=== PATIENT | male | born 1930 | race Caucasian/White ===

== ENCOUNTER → 2018-05-05 | Outpatient (CLI) | payer MEDICARE, BC ==
--- NOTE | 2018-05-05 08:21 | MM ---
Reason for exam: additional evaluation requested from prior study. Last mammogram was performed 5 years and 4 months ago. History: Patient has history of breast cancer at age 82. Mastectomy of the right breast, January 05, 2013. Malignant US RT VAD breast biopsy of the right breast, December 29, 2012. Taking antineoplastic beginning at age 82. Physical Findings: Nurse did not find any significant physical abnormalities on exam. MG 3D Diag Mammo W/Cad LT CC, MLO, and XCCL view(s) were taken of the left breast. Prior study comparison: December 21, 2012, CAD bilateral diagnostic mammogram. There are scattered fibroglandular densities. No significant new findings when compared with previous films. These results were verbally communicated with the patient and result sheet given to the patient on 05/05/18. ASSESSMENT: Negative, BI-RAD 1 RECOMMENDATION: Follow-up diagnostic mammogram of the left breast in 1 year. (as clinically indicated) Manage on a clinical basis with regard to patient's concerns about the right axilla. He does not report any palpable concerns. The nurse also did not feel any abnormality in the right axilla.
== END | disposition home or self-care (01) ==
LOC: RADMAMWWP 07:12
PROVIDERS: ATTEND Internal Medicine Hematology & Oncology
DX: Z08 Encounter for follow-up examination after completed treatment for malignant neoplasm (principal); Z85.3 Personal history of malignant neoplasm of breast
CPT/HCPCS: 77065; G0279; 77061

== ENCOUNTER 2018-11-16 20:47 | Emergency (ER) | payer MEDICARE, BC ==
[2018-11-16 20:54] VITALS: RESP 18
[2018-11-16 21:42] LABS: Basophils % (A) 0 %; Eosinophils # (A) 0.2 k/uL (0-0.7); Eosinophils % (A) 1 %; HCT 44.9 % (39.0-53.0); HGB 14.4 gm/dL (13.0-17.5); Lymphocytes # (A) 0.9 k/uL (1.0-4.8); Lymphocytes % (A) 9 %; MCH 30.9 pg (25.0-35.0); MCHC 32.1 g/dL (31.0-37.0); MCV 96.3 fL (80.0-100.0); Mean Platelet Volume 7.4; Monocytes # (A) 0.4 k/uL (0-1.0); Monocytes % (A) 4 %; Neutrophils # (A) 9.2 k/uL (1.3-7.7); Neutrophils % (A) 86 %; Platelet Count 204 k/uL (150-450); RBC 4.66 m/uL (4.30-5.90); RDW 13.7 % (11.5-15.5); WBC 10.7 k/uL (3.8-10.6)
[2018-11-16] MEDS ORDERED: ACETAMINOPHEN TAB 325 MG TAB PO STA (21:52)
[2018-11-16 21:54] LABS: Albumin 3.8 g/dL (3.5-5.0); C Reactive Protein 5.1 mg/L (<10.0); Calcium 9.2 mg/dL (8.4-10.2); Potassium 4.2 mmol/L (3.5-5.1); Total Bilirubin 0.6 mg/dL (0.2-1.3); Total Protein 6.2 g/dL (6.3-8.2)
--- NOTE | 2018-11-16 21:57 | XR ---
PROCEDURE: XR wrist complete LT - 3V DATE AND TIME: 11/16/2018 9:39 PM CLINICAL INDICATION: PHH; Pain TECHNIQUE: Department protocol COMPARISON: None FINDINGS: There is no fracture or malalignment. 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 Moderate marked lateral intercarpal and radiocarpal osteoarthritis changes are noted. The soft tissues are unremarkable. IMPRESSION: NO ACUTE PROCESS.
--- NOTE | 2018-11-16 21:58 | XR ---
PROCEDURE: XR hand complete LT - 3V DATE AND TIME: 11/16/2018 9:39 PM CLINICAL INDICATION: PHH; Pain TECHNIQUE: Department protocol COMPARISON: None FINDINGS: There is no fracture or malalignment. Markedly advanced first [facility] osteoarthritis are noted. Moderate marked lateral intercarpal and radiocarpal osteoarthritis changes are noted. The soft tissues are unremarkable. IMPRESSION: NO ACUTE PROCESS.
--- NOTE | 2018-11-16 22:36 | ED ---
General Adult HPI - General Source: patient, RN notes reviewed, old records reviewed Mode of arrival: ambulatory Limitations: no limitations <Guillermo Wang - Last Filed: 11/16/18 23:16> <Swathi Ayers - Last Filed: 11/17/18 21:57> - General Chief complaint: Extremity Injury, Upper Stated complaint: Hand pain Time Seen by Provider: 11/16/18 21:00 - History of Present Illness Initial comments: A 88-year-old male patient past medical history of hyperlipidemia, breast cancer in remission since ED with 1 day of pain, swelling and left wrists at anatomical snuffbox. Patient denies any other complaints. Patient denies fever/chills, nausea vomiting diarrhea, chest pain, shortness breath, abdominal pain. Systemic: Pt denies fatigue, fever/chills, rash. Pt denies weakness, night sweats, weight loss. Neuro: Pt denies headache, visual disturbances, syncope or pre-syncope. HEENT: Pt denies ocular discharge or irritation, otalgia, rhinorrhea, pharyngitis or notable lymphadenopathy. Cardiopulmonary: Pt denies chest pain, SOB, heart palpitations, dyspnea on exertion. Abdominal/GI: Pt denies abdominal pain, n/v/d. : Pt denies dysuria, burning w/ urination, frequency/urgency. Denies new onset urinary or bowel incontinence. MSK: Pt denies loss of strength or function in extremities. Neuro: Pt denies new onset weakness, paresthesias. (Guillermo Wang) - Related Data Home Medications Medication Instructions Recorded Confirmed Antiarthritic Combination No.2 900 mg PO DAILY 03/21/15 03/30/15 [Glucosamine-Chondroitin] Aspirin 81 mg PO DAILY 03/21/15 03/30/15 Calcium Carbonate [Calcium] 600 mg PO DAILY 03/21/15 03/30/15 Cholecalciferol [Vitamin D3] 1,000 unit PO DAILY 03/21/15 03/30/15 Simvastatin [Zocor] 40 mg PO DAILY 03/21/15 03/30/15 Tamoxifen Citrate 20 mg PO DAILY 03/21/15 03/30/15 Previous Rx's Medication Instructions Recorded HYDROcodone/APAP 5-325MG [[place] 5] 1 - 2 each PO Q6HR PRN #60 tab 04/02/15 Warfarin [Coumadin] 2.5 mg PO DAILY #27 tab 04/02/15 Cephalexin [Keflex] 500 mg PO Q12HR 10 Days cap 11/16/18 Allergies Allergy/AdvReac Type Severity Reaction Status Date / Time No Known Allergies Allergy Verified 11/16/18 20:54 Review of Systems ROS Other: All systems not noted in ROS Statement are negative. <Guillermo Wang - Last Filed: 11/16/18 23:16> ROS Other: All systems not noted in ROS Statement are negative. <Swathi Ayers - Last Filed: 11/17/18 21:57> ROS Statement: Those systems with pertinent positive or pertinent negative responses have been documented in the HPI. Past Medical History Past Medical History: Cancer, Hyperlipidemia Additional Past Medical History / Comment(s): BREAST CA History of Any Multi-Drug Resistant Organisms: None Reported Past Surgical History: Breast Surgery, Hernia Repair Additional Past Surgical History / Comment(s): RT BREAST MASTECTOMY,, 03-30-15 TOTAL RT KNEE REPLACEMENT Past Anesthesia/Blood Transfusion Reactions: No Reported Reaction Past Psychological History: No Psychological Hx Reported Smoking Status: Former smoker Past Alcohol Use History: None Reported Past Drug Use History: None Reported - Past Family History Mother Family Medical History: No Reported History <Guillermo Wang - Last Filed: 11/16/18 23:16> General Exam Limitations: no limitations <Guillermo Wang - Last Filed: 11/16/18 23:16> - General Exam Comments Initial Comments: Constitutional: NAD, AOX3, Pt has pleasant affect. HEENT: NC/AT, trachea midline, neck supple, no lymphadenopathy. Posterior pharynx non erythematous, without exudates. External ears appear normal, without discharge. Mucous membranes moist. Eyes PERRLA, EOM intact. There is no scleral icterus. No pallor noted. Cardiopulmonary: RRR, no murmurs, rubs or gallops, no JVD noted. Lungs CTAB in anterior and posterior [place]. No peripheral edema. Abdominal exam: Abdomen soft and non-distended. Abdomen non-tender to palpation in all 4 quadrants. Bowel sounds active in LLQ. No hepatosplenomegaly. No ecchymosis Neuro: CN II-XII grossly intact. No nuchal rigidity. MSK: Left snuffbox mildly tender to palpation, mild amount of edema, no erythema. No posterior calf tenderness bilaterally, homans sign negative bilaterally. Posterior tibialis and radial pulse +2 bilaterally. Sensation intact in upper and lower extremities. Full active ROM in upper and lower extremities, 5/5 stregnth. (Guillermo Wang) Course Vital Signs 11/16/18 11/16/18 20:49 23:28 Temperature 98.5 F 100.1 F H Pulse Rate 69 99 Respiratory 18 18 Rate Blood Pressure 150/89 124/64 O2 Sat by Pulse 93 L 95 Oximetry Medical Decision Making - Lab Data Result diagrams: 11/16/18 21:30 11/16/18 21:30 <Guillermo Wang - Last Filed: 11/16/18 23:16> - Lab Data Result diagrams: 11/16/18 21:30 11/16/18 21:30 <Swathi Ayers - Last Filed: 11/17/18 21:57> - Medical Decision Making A 88-year-old male patient past medical history of hyperlipidemia, breast cancer in remission since ED with 1 day of pain, swelling and left wrists at anatomical snuffbox. Patient denies any other complaints. Patient denies fever/chills, nausea vomiting diarrhea, chest pain, shortness breath, abdominal pain. Patient vital signs stable, afebrile. Physical exam displayed: Left snuffbox mildly tender to palpation, mild amount of edema, no erythema. CBC noncompressive. CMP revealed mildly decreased kidney function. ESR and CRP were within normal limits. Plain films of hand and wrist did not display acute pathology. Patient to be discharged with by mouth prescription of Keflex. Patient on outpatient follow-up with orthopedic surgeon, patient follow up with primary care physician in one to 2 days. Patient referred to nephrology for decreased kidney function. Case and patient seen with Dr. Ayers. (Guillermo Wang) I personally saw and examined the patient. I reviewed and agree with the mid- level provider findings including all diagnostic interpretations and treatment plans as written unless otherwise stated. Patient's physical exam reveals some swelling of the left hand no obvious cellulitis no obvious abscess, full range of motion with minimal tenderness. Labs are unremarkable with no elevation of CRP. I have a very minimal suspicion for infectious process I suspect this is likely inflammatory however we will prescribe by mouth antibiotics for possible early cellulitis advised follow-up with hand surgeon. Patient and agreeable with this plan. (Swathi Ayers) - Lab Data Lab Results 11/16/18 11/16/18 Range/Units 21:30 21:30 WBC 10.7 H (3.8-10.6) k/uL RBC 4.66 (4.30-5.90) m/uL Hgb 14.4 (13.0-17.5) gm/dL Hct 44.9 (39.0-53.0) % MCV 96.3 (80.0-100.0) fL MCH 30.9 (25.0-35.0) pg MCHC 32.1 (31.0-37.0) g/dL RDW 13.7 (11.5-15.5) % Plt Count 204 (150-450) k/uL Neutrophils % 86 % Lymphocytes % 9 % Monocytes % 4 % Eosinophils % 1 % Basophils % 0 % Neutrophils # 9.2 H (1.3-7.7) k/uL Lymphocytes # 0.9 L (1.0-4.8) k/uL Monocytes # 0.4 (0-1.0) k/uL Eosinophils # 0.2 (0-0.7) k/uL Basophils # 0.0 (0-0.2) k/uL ESR 7 (0-15) mm/hr Sodium 140 (137-145) mmol/L Potassium 4.2 (3.5-5.1) mmol/L Chloride 107 (98-107) mmol/L Carbon Dioxide 25 (22-30) mmol/L Anion Gap 8 mmol/L BUN 31 H (9-20) mg/dL Creatinine 1.54 H (0.66-1.25) mg/dL Est GFR (CKD-EPI)AfAm 47 (>60 ml/min/1.73 sqM) Est GFR (CKD-EPI)NonAf 40 (>60 ml/min/1.73 sqM) Glucose 135 H (74-99) mg/dL Calcium 9.2 (8.4-10.2) mg/dL Total Bilirubin 0.6 (0.2-1.3) mg/dL AST 22 (17-59) U/L ALT 25 (21-72) U/L Alkaline Phosphatase 59 (38-126) U/L C-Reactive Protein 5.1 (<10.0) mg/L Total Protein 6.2 L (6.3-8.2) g/dL Albumin 3.8 (3.5-5.0) g/dL Disposition Is patient prescribed a controlled substance at d/c from ED?: No <DeliayoelGuillermo Jojo - Last Filed: 11/16/18 23:16> <Swathi Ayers - Last Filed: 11/17/18 21:57> Clinical Impression: Arthralgia Disposition: HOME SELF-CARE Condition: Stable Instructions (If sedation given, give patient instructions): Arthralgia (ED) Additional Instructions: Patient to adhere to previously discussed treatment plan and will take medication(s) as directed. Patient to follow up with PCP in 1-2 days. Patient to return to ED if symptoms do not improve. Please take medication as prescribed. Please follow-up with primary care provider in 1-2 days. Please call orthopedic surgeon tomorrow. Return to ER if condition worsens in anyway. Prescriptions: Cephalexin [Keflex] 500 mg PO Q12HR 10 Days cap Referrals: Bennett Blank MD [Primary Care Provider] - 1-2 days Homar Galicia DO [Medical Doctor] - 1-2 days Shanika Espinal MD [STAFF PHYSICIAN] - 1-2 days
[2018-11-16 23:12] LABS: Erythrocyte Sedimentation Rate 7 mm/hr (0-15)
[2018-11-16 23:29] VITALS: BP 124/64; PULSE 99; TEMP 100.1
== END 2018-11-16 23:29 | disposition home or self-care (01) ==
LOC: EC 20:47
DX: M25.532 Pain in left wrist (principal); M25.432 Effusion, left wrist; R94.4 Abnormal results of kidney function studies; Z79.82 Long term (current) use of aspirin; Z79.899 Other long term (current) drug therapy; E78.5 Hyperlipidemia, unspecified; Z85.3 Personal history of malignant neoplasm of breast; Z96.651 Presence of right artificial knee joint; Z87.891 Personal history of nicotine dependence
CPT/HCPCS: 36415; 80053; 85025; 85652; 86140; 99284

== ENCOUNTER 2018-11-30 02:04 | Emergency (ER) | payer MEDICARE, BC ==
[2018-11-30 03:06] LABS: Basophils % (A) 1 %; Eosinophils # (A) 0.2 k/uL (0-0.7); Eosinophils % (A) 3 %; HCT 40.9 % (39.0-53.0); HGB 13.5 gm/dL (13.0-17.5); Lymphocytes # (A) 0.9 k/uL (1.0-4.8); Lymphocytes % (A) 12 %; MCH 31.1 pg (25.0-35.0); MCV 94.3 fL (80.0-100.0); Mean Platelet Volume 6.8; Monocytes # (A) 0.5 k/uL (0-1.0); Monocytes % (A) 6 %; Neutrophils % (A) 78 %; Platelet Count 223 k/uL (150-450); RBC 4.34 m/uL (4.30-5.90); RDW 13.8 % (11.5-15.5); WBC 7.7 k/uL (3.8-10.6)
[2018-11-30 03:14] LABS: Albumin 3.3 g/dL (3.5-5.0); Calcium 9.1 mg/dL (8.4-10.2); Potassium 4.2 mmol/L (3.5-5.1); Total Bilirubin 0.7 mg/dL (0.2-1.3); Total Protein 5.5 g/dL (6.3-8.2)
--- NOTE | 2018-11-30 03:22 | XR ---
EXAM: XR Chest, 2 Views CLINICAL HISTORY: ITS.REASON XR Reason: difficulty breathing TECHNIQUE: Frontal and lateral views of the chest. COMPARISON: 10/04/15 CT chest IMPRESSION: Normal heart size. No consolidation or pleural effusion. No acute spinal fracture. 8 mm density overlying the left lower lung at the costophrenic angle may be a nipple or a nodule. Recommend follow-up with nipple markers for better characterization.
[2018-11-30 03:33] LABS: INR 0.9 (<1.2); Partial Thromboplastin Time 23.5 sec (22.0-30.0); Prothrombin Time 9.8 sec (9.0-12.0)
[2018-11-30 03:47] LABS: D-Dimer 1.3 mg/L FEU (<0.60)
--- NOTE | 2018-11-30 04:46 | CT ---
EXAM: CT Angiography Chest With Intravenous Contrast CLINICAL HISTORY: ITS.REASON CT Reason: Pain TECHNIQUE: Axial computed tomographic angiography images of the chest with intravenous contrast using pulmonary embolism protocol. CTDI is 11 mGy and DLP is 364 mGy-cm. This CT exam was performed using one or more of the following dose reduction techniques: automated exposure control, adjustment of the mA and/or kV according to patient size, and/or use of iterative reconstruction technique. MIP reconstructed images were created and reviewed. COMPARISON: CT chest 10/04/15 FINDINGS: Pulmonary arteries: No filling defects. Aorta: No thoracic aortic aneurysm. Lungs: No mass. No consolidation. Pleural space: No significant effusion. No pneumothorax. Heart: No cardiomegaly or pericardial effusion. Bones/joints: Age indeterminate 20% wedging of the T3 and T4 vertebral body without retropulsion. Soft tissues: Unremarkable. Lymph nodes: No enlarged lymph nodes. IMPRESSION: No pulmonary embolism. Age indeterminate 20% wedging of the T3 and T4 vertebral bodies without retropulsion, not seen on the prior exam from 2016.
--- NOTE | 2018-11-30 04:53 | ED ---
SOB HPI - General Chief Complaint: Shortness of Breath Stated Complaint: Flank Pain Time Seen by Provider: 11/30/18 02:08 Source: patient Mode of arrival: ambulatory Limitations: no limitations - History of Present Illness Initial Comments: This patient is an 88-year-old man who presents to be evaluated for pleuritic chest pain that he noted tonight. He indicates the left posterior axillary line. He states that it came on tonight while he was in bed trying sleep. The patient states that when the pain did not resolve he eventually told his an d she recommended he be seen here. The patient states that the pain has improved since onset. He is not having any pain other than if he takes a very deep breath. He has not noted other symptoms. There is no fever. No cough. No sputum. He is not having diaphoresis, dyspnea, nausea, vomiting or palpitations, lightheadedness or syncope. MD Complaint: pain with inspiration -: hour(s) Severity: moderate Quality: sharp Consistency: intermittent, now resolved Improves With: nothing Worsens With: inspiration Associated Symptoms: denies other symptoms Treatments Prior to Arrival: none - Related Data Home Oxygen Therapy: No Home Medications Medication Instructions Recorded Confirmed Antiarthritic Combination No.2 900 mg PO DAILY 03/21/15 03/30/15 [Glucosamine-Chondroitin] Aspirin 81 mg PO DAILY 03/21/15 03/30/15 Calcium Carbonate [Calcium] 600 mg PO DAILY 03/21/15 03/30/15 Cholecalciferol [Vitamin D3] 1,000 unit PO DAILY 03/21/15 03/30/15 Simvastatin [Zocor] 40 mg PO DAILY 03/21/15 03/30/15 Tamoxifen Citrate 20 mg PO DAILY 03/21/15 03/30/15 Previous Rx's Medication Instructions Recorded HYDROcodone/APAP 5-325MG [[place] 5] 1 - 2 each PO Q6HR PRN #60 tab 04/02/15 Warfarin [Coumadin] 2.5 mg PO DAILY #27 tab 04/02/15 Cephalexin [Keflex] 500 mg PO Q12HR 10 Days cap 11/16/18 Allergies Allergy/AdvReac Type Severity Reaction Status Date / Time No Known Allergies Allergy Verified 11/30/18 02:12 Review of Systems ROS Statement: Those systems with pertinent positive or pertinent negative responses have been documented in the HPI. ROS Other: All systems not noted in ROS Statement are negative. Constitutional: Denies: fever, chills Respiratory: Denies: cough, dyspnea, hemoptysis Cardiovascular: Reports: as per HPI, chest pain. Denies: palpitations, dyspnea on exertion, orthopnea, edema, syncope Gastrointestinal: Denies: abdominal pain, nausea, vomiting Genitourinary: Denies: dysuria Musculoskeletal: Denies: back pain Skin: Denies: rash Neurological: Denies: headache, weakness, numbness Past Medical History Past Medical History: Cancer, Hyperlipidemia Additional Past Medical History / Comment(s): BREAST CA, History of Any Multi-Drug Resistant Organisms: None Reported Past Surgical History: Breast Surgery, Hernia Repair Additional Past Surgical History / Comment(s): RT BREAST MASTECTOMY,, 03-30-15 TOTAL RT KNEE REPLACEMENT, Past Anesthesia/Blood Transfusion Reactions: No Reported Reaction Past Psychological History: No Psychological Hx Reported Smoking Status: Former smoker Past Alcohol Use History: None Reported Past Drug Use History: None Reported - Past Family History Mother Family Medical History: No Reported History General Exam Limitations: no limitations General appearance: alert, in no apparent distress Head exam: Present: atraumatic, normocephalic Eye exam: Present: normal appearance. Absent: scleral icterus, conjunctival injection ENT exam: Present: normal oropharynx Neck exam: Present: normal inspection Respiratory exam: Present: normal lung sounds bilaterally, chest wall tenderness (The patient does have some mild tenderness in the left posterior axillary area, patient states this does reproduce his pain). Absent: respiratory distress, wheezes, rales, rhonchi, stridor, accessory muscle use, decreased breath sounds, prolonged expiratory Cardiovascular Exam: Present: regular rate, normal rhythm, normal heart sounds. Absent: systolic murmur, diastolic murmur, rubs, gallop GI/Abdominal exam: Present: soft. Absent: distended, tenderness, guarding, rebound, rigid, mass Extremities exam: Present: normal inspection, normal capillary refill. Absent: pedal edema, calf tenderness Neurological exam: Present: alert Skin exam: Present: warm, dry, intact, normal color. Absent: rash Course Vital Signs 11/30/18 02:07 Temperature 98.5 F Pulse Rate 78 Respiratory 18 Rate Blood Pressure 141/96 O2 Sat by Pulse 98 Oximetry Medical Decision Making - Medical Decision Making Patient is an 88-year-old man with some left-sided pleuritic chest pain. On the exam he does have a little bit of tenderness which he states is similar to the pain is having. Given the patient's age he did have cardiac workup, and his tests reveal elevated d-dimer. The subsequent CT is negative other than a compression fracture area patient does recall having a fall and number of months ago that he believes may have come for this. I did discuss admitting the patient for telemetry monitoring and serial cardiac enzymes, but this point he is declining. He states that if the symptoms are recurring he will definitely return otherwise is going to follow with Dr. Blank to see about having a stress test as a precaution. - Lab Data Result diagrams: 11/30/18 02:51 11/30/18 02:51 Lab Results 11/30/18 11/30/18 11/30/18 Range/Units 02:51 02:51 02:51 WBC 7.7 (3.8-10.6) k/uL RBC 4.34 (4.30-5.90) m/uL Hgb 13.5 (13.0-17.5) gm/dL Hct 40.9 (39.0-53.0) % MCV 94.3 (80.0-100.0) fL MCH 31.1 (25.0-35.0) pg MCHC 33.0 (31.0-37.0) g/dL RDW 13.8 (11.5-15.5) % Plt Count 223 (150-450) k/uL Neutrophils % 78 % Lymphocytes % 12 % Monocytes % 6 % Eosinophils % 3 % Basophils % 1 % Neutrophils # 6.0 (1.3-7.7) k/uL Lymphocytes # 0.9 L (1.0-4.8) k/uL Monocytes # 0.5 (0-1.0) k/uL Eosinophils # 0.2 (0-0.7) k/uL Basophils # 0.0 (0-0.2) k/uL PT (9.0-12.0) sec INR (<1.2) APTT (22.0-30.0) sec D-Dimer (<0.60) mg/L FEU Sodium 139 (137-145) mmol/L Potassium 4.2 (3.5-5.1) mmol/L Chloride 109 H (98-107) mmol/L Carbon Dioxide 24 (22-30) mmol/L Anion Gap 6 mmol/L BUN 28 H (9-20) mg/dL Creatinine 1.14 (0.66-1.25) mg/dL Est GFR (CKD-EPI)AfAm 67 (>60 ml/min/1.73 sqM) Est GFR (CKD-EPI)NonAf 58 (>60 ml/min/1.73 sqM) Glucose 98 (74-99) mg/dL Calcium 9.1 (8.4-10.2) mg/dL Total Bilirubin 0.7 (0.2-1.3) mg/dL AST 21 (17-59) U/L ALT 26 (21-72) U/L Alkaline Phosphatase 49 (38-126) U/L Troponin I (0.000-0.034) ng/mL NT-Pro-B Natriuret Pep 246 pg/mL Total Protein 5.5 L (6.3-8.2) g/dL Albumin 3.3 L (3.5-5.0) g/dL 11/30/18 11/30/18 Range/Units 02:51 02:51 WBC (3.8-10.6) k/uL RBC (4.30-5.90) m/uL Hgb (13.0-17.5) gm/dL Hct (39.0-53.0) % MCV (80.0-100.0) fL MCH (25.0-35.0) pg MCHC (31.0-37.0) g/dL RDW (11.5-15.5) % Plt Count (150-450) k/uL Neutrophils % % Lymphocytes % % Monocytes % % Eosinophils % % Basophils % % Neutrophils # (1.3-7.7) k/uL Lymphocytes # (1.0-4.8) k/uL Monocytes # (0-1.0) k/uL Eosinophils # (0-0.7) k/uL Basophils # (0-0.2) k/uL PT 9.8 (9.0-12.0) sec INR 0.9 (<1.2) APTT 23.5 (22.0-30.0) sec D-Dimer 1.30 H (<0.60) mg/L FEU Sodium (137-145) mmol/L Potassium (3.5-5.1) mmol/L Chloride (98-107) mmol/L Carbon Dioxide (22-30) mmol/L Anion Gap mmol/L BUN (9-20) mg/dL Creatinine (0.66-1.25) mg/dL Est GFR (CKD-EPI)AfAm (>60 ml/min/1.73 sqM) Est GFR (CKD-EPI)NonAf (>60 ml/min/1.73 sqM) Glucose (74-99) mg/dL Calcium (8.4-10.2) mg/dL Total Bilirubin (0.2-1.3) mg/dL AST (17-59) U/L ALT (21-72) U/L Alkaline Phosphatase (38-126) U/L Troponin I <0.012 (0.000-0.034) ng/mL NT-Pro-B Natriuret Pep pg/mL Total Protein (6.3-8.2) g/dL Albumin (3.5-5.0) g/dL Disposition Clinical Impression: Compression fracture, Pleuritic chest pain Disposition: HOME SELF-CARE Condition: Good Instructions (If sedation given, give patient instructions): Vertebral Co mpression Fracture (ED) Is patient prescribed a controlled substance at d/c from ED?: No Referrals: Bennett Blank MD [Primary Care Provider] - 1-2 days
[2018-11-30 05:37] VITALS: BP 143/86; PULSE 69; RESP 20; TEMP 98.6
== END 2018-11-30 05:37 | disposition home or self-care (01) ==
LOC: EC 02:04
DX: M48.54XA Collapsed vertebra, not elsewhere classified, thoracic region, initial encounter for fracture (principal); R07.81 Pleurodynia; E78.5 Hyperlipidemia, unspecified; Z85.3 Personal history of malignant neoplasm of breast; Z87.891 Personal history of nicotine dependence; Z79.82 Long term (current) use of aspirin; Z79.899 Other long term (current) drug therapy; Z96.651 Presence of right artificial knee joint; Z90.11 Acquired absence of right breast and nipple
CPT/HCPCS: 36415; 71046; 71275; 80053; 83880; 84484; 85025; 85379; 85610; 85730; 93005; 99285

== ENCOUNTER → 2019-03-04 | Outpatient (CLI) | payer MEDICARE, BC ==
[2019-03-04 08:25] LABS: HCT 43.5 % (39.0-53.0); MCH 30.7 pg (25.0-35.0); MCHC 32.1 g/dL (31.0-37.0); MCV 95.7 fL (80.0-100.0); Mean Platelet Volume 7.2; Platelet Count 205 k/uL (150-450); RBC 4.54 m/uL (4.30-5.90); RDW 14.9 % (11.5-15.5); WBC 6.2 k/uL (3.8-10.6)
== END | disposition home or self-care (01) ==
LOC: LABPAT 07:43
PROVIDERS: ATTEND Anesthesiology
DX: Z01.812 Encounter for preprocedural laboratory examination (principal)
CPT/HCPCS: 36415; 85027

== ENCOUNTER 2019-03-05 10:03 | Emergency (ER) | payer MEDICARE, BC ==
[2019-03-05] MEDS ORDERED: ACETAMINOPHEN TAB 500 MG TAB PO STA (10:25)
[2019-03-05] MEDS ORDERED: HYDROmorphone 1 MG/ML 1 ML SYRINGE IM STA (10:25)
--- NOTE | 2019-03-05 10:30 | ED ---
General Adult HPI - General Stated complaint: ABDOMINAL PAIN, PRE HERNIA Sx Time Seen by Provider: 03/05/19 10:05 Source: RN notes reviewed - History of Present Illness Initial comments: This is an 89-year-old male with a past medical history significant for right inguinal hernia. Patient states he's supposed to have surgery Thursday morning. Patient states the pain in the area is worse with walking or sitting up. Patient states when he lays down the areas immediately reducible and the pain is much better. Patient states she's been up and down the stairs because his bedrooms on the second soreness been hurting so he decided come to the emergency department to see if there is anything we can do. Patient does not want any narcotics to go home with. Patient has not taken any pain medicines at home. - Related Data Home Medications Medication Instructions Recorded Confirmed Tamoxifen Citrate 20 mg PO DAILY 03/21/15 03/02/19 Aspirin [Adult Low Dose Aspirin EC] 81 mg PO DAILY 03/02/19 03/02/19 Multivitamins, Thera [Multivitamin 1 tab PO DAILY 03/02/19 03/02/19 (formulary)] Allergies Allergy/AdvReac Type Severity Reaction Status Date / Time No Known Allergies Allergy Verified 03/02/19 08:40 Review of Systems ROS Statement: Those systems with pertinent positive or pertinent negative responses have been documented in the HPI. ROS Other: All systems not noted in ROS Statement are negative. Past Medical History Past Medical History: Cancer, Hyperlipidemia Additional Past Medical History / Comment(s): BREAST CA (2012), HX OF STOMACH ULCER YEARS AGO, CONSTIPATION, RIGHT INGUINAL HERNIA. History of Any Multi-Drug Resistant Organisms: None Reported Past Surgical History: Breast Surgery, Hernia Repair Additional Past Surgical History / Comment(s): RT BREAST MASTECTOMY,, 03-30-15 TOTAL RT KNEE REPLACEMENT, LEFT INGUINAL HERNIA (22 YRS OLD) Past Anesthesia/Blood Transfusion Reactions: No Reported Reaction Past Psychological History: No Psychological Hx Reported Smoking Status: Never smoker Past Alcohol Use History: None Reported Additional Past Alcohol Use History / Comment(s): SMOKED 1 YEAR AT 20 YRS OLD Past Drug Use History: None Reported - Past Family History Mother Family Medical History: No Reported History General Exam - General Exam Comments Initial Comments: GENERAL: Patient is well-developed and well-nourished. Patient is nontoxic and well- hydrated and is in no acute distress. ENT: Neck is soft and supple. No significant lymphadenopathy is noted. Oropharynx is clear. Moist mucous membranes. Neck has full range of motion without eliciting any pain. EYES: The sclera were anicteric and conjunctiva were pink and moist. Extraocular movements were intact and pupils were equal round and reactive to light. Eyelids were unremarkable. SKIN: Skin is clear with no lesions or rashes and otherwise unremarkable. NEUROLOGIC: Patient is alert and oriented x3. Cranial nerves II through XII are grossly intact. Motor and sensory are also intact. Normal speech, volume and content. Symmetrical smile. MUSCULOSKELETAL: Normal extremities with adequate strength and full range of motion. PSYCHIATRIC: Normal psychiatric evaluation. Medical Decision Making - Medical Decision Making Patient's hernia was completely reducible lying and standing. Patient states it only hurt it while he was walking upstairs or sitting forward in a chair. I told the patient that he needs not to walk around as much and relax and he can take some Tylenol. Patient understood and stated that he would not go up and down the stairs and maybe sleep on the first floor. Disposition Clinical Impression: Right inguinal hernia Disposition: HOME SELF-CARE Condition: Good Instructions (If sedation given, give patient instructions): Inguinal Hernia (ED) Is patient prescribed a controlled substance at d/c from ED?: No Referrals: Bennett Blank MD [Primary Care Provider] - 1-2 days
[2019-03-05 10:38] VITALS: BP 108/84; PULSE 80; RESP 16; TEMP 98.4
== END 2019-03-05 11:12 | disposition home or self-care (01) ==
LOC: EC 10:03
DX: K40.90 Unilateral inguinal hernia, without obstruction or gangrene, not specified as recurrent (principal); Z87.891 Personal history of nicotine dependence; Z79.82 Long term (current) use of aspirin; Z79.899 Other long term (current) drug therapy; Z85.3 Personal history of malignant neoplasm of breast; Z90.11 Acquired absence of right breast and nipple; Z98.890 Other specified postprocedural states
CPT/HCPCS: 99284; 96372; J1170

== ENCOUNTER 2019-03-08 06:12 | Day surgery (SDC) | payer MEDICARE, BC ==
[2019-03-02 09:19] VITALS: BMI 25.1
[~2019-03-08 06:12] MED LIST: DEXAMETHASONE SOD PHOSPHATE 10 MG/ML 1 ML VIAL IV ONE; HEPARIN SODIUM,PORCINE 5,000 UNIT/ML 1 ML VIAL SQ ONE; HYDROmorphone 0.5 MG/0.5 ML SYRINGE IVP PRN; LACTATED RINGERS 1,000 ML IV SCH; MIDAZOLAM 2 MG/2 ML VIAL IV PRN; ONDANSETRON 4 MG/2 ML VIAL IVP ONE; ceFAZolin IN SWFI 2 GM/20 ML SYRINGE IVP ONE
[2019-03-08] MEDS ORDERED: LIDOCAINE 1% 20 ML VIAL (10MG/ML) FOR IV START INTRADERMA ONE (07:10)
[2019-03-08] MEDS ORDERED: ROCURONIUM BROMIDE 10 MG/ML 10 ML VIAL IV ONE (07:34)
[2019-03-08] MEDS ORDERED: ONDANSETRON 4 MG/2 ML VIAL ONE (07:34)
[2019-03-08] MEDS ORDERED: MIDAZOLAM 2 MG/2 ML VIAL ONE (07:34)
[2019-03-08] MEDS ORDERED: fentaNYL (PF) 50 MCG/ML 2 ML AMP ONE (07:34)
[2019-03-08] MEDS ORDERED: PHENYLEPHRINE-0.9% NACL SYG 1 MG/10 ML SYRINGE ONE (07:34)
[2019-03-08] MEDS ORDERED: GLYCOPYRROLATE 0.2 MG/ML 2 ML VIAL ONE (07:34)
[2019-03-08] MEDS ORDERED: PROPOFOL 10 MG/ML 20 ML VIAL IV ONE (07:34)
[2019-03-08] MEDS ORDERED: SUCCINYLCHOLINE CHLORIDE 100 MG/5 ML SYR IV ONE (07:34)
[2019-03-08] MEDS ORDERED: NEOSTIGMINE 1 MG/ML 10 ML VIAL ONE (07:34)
[2019-03-08] MEDS ORDERED: LIDOCAINE 1% INJ 10MG/ML (20 ML MDV) ONE (07:34)
[2019-03-08] MEDS ORDERED: BUPIVACAINE (PF) 0.5% 30 ML VIAL SQ ONE ×2 (08:24)
[2019-03-08 09:23] VITALS: TEMP 97.4
--- NOTE | 2019-03-08 09:26 | P.OP ---
Date of Procedure: 03/08/19 Preoperative Diagnosis: Right inguinal hernia Postoperative Diagnosis: Same Procedure(s) Performed: Robotic assisted right inguinal hernia repair Anesthesia: FERNANDO Surgeon: Portillo Low Estimated Blood Loss (ml): 5 Condition: stable Disposition: same day Indications for Procedure: Patient presented in the clinic with a right inguinal hernia. Risks benefits and alternatives to the procedure were discussed the patient included risks of bleeding infection damage surrounding tissue need for further operation need for conversion to open and recurrence patient stated he understood agreed and consented informed consent was obtained Operative Findings: Right inguinal hernia Description of Procedure: Patient is brought operative suite remained in the supine position underwent general endotracheal anesthesia per Department of anesthesia he was prepped and draped in the usual sterile fashion timeout was performed correct patient correct procedure correct site was verified a 1 cm incision was made superior to the umbilicus carried down to the fascia which was incised in the usual fashion and the abdomen was then insufflated after an 8 mm port was placed. There is no injuries noted. 2 8 mm ports were placed to the left and the right 11 cm apart from the midline. This was done under direct visualization. The patient was placed in Trendelenburg there was a right-sided defect noted there is no left- sided defect noted. The robot was docked. The peritoneum was taken down medially to the pubis. Following this the lateral dissection of the peritoneum was performed and the hernia sac was then reduced off the cord structures. It was an indirect defect. The peritoneum was reduced completely and posteriorly to the psoas. The [employer] operator mesh was then placed medially at the pubis and then unfolded being sure to cover the defect completely. The peritoneum was then sutured back in place using a 2-0 V LOC self locking suture. The midline fascial incision was closed with 0 Vicryl suture with 8 of a Ko-Amarilys suture passer. The abdomen was desufflated prior to this hemostasis was noted and the ports removed under direct visualization. The skin incisions were closed with 4-0 subcuticular Vicryl suture. Followed by skin glue. Patient tolerated the procedure well there are no apparent complications Plan - Discharge Summary New Discharge Prescriptions: New Docusate [Colace] 100 mg PO DAILY 10 Days #20 capsule HYDROcodone/APAP 5-325MG [[place] 5-325] 1 tab PO Q6HR PRN 3 Days #12 tab PRN Reason: Pain No Action Tamoxifen Citrate 20 mg PO DAILY Multivitamins, Thera [Multivitamin (formulary)] 1 tab PO DAILY Aspirin [Adult Low Dose Aspirin EC] 81 mg PO DAILY Discharge Medication List Tamoxifen Citrate 20 mg PO DAILY 03/21/15 [History] Aspirin [Adult Low Dose Aspirin EC] 81 mg PO DAILY 03/02/19 [History] Multivitamins, Thera [Multivitamin (formulary)] 1 tab PO DAILY 03/02/19 [History] Docusate [Colace] 100 mg PO DAILY 10 Days #20 capsule 03/08/19 [Rx] HYDROcodone/APAP 5-325MG [[place] 5-325] 1 tab PO Q6HR PRN 3 Days #12 tab 03/08/19 [Rx] Follow up Appointment(s)/Referral(s): Portillo Low DO [Doctor of Osteopathic Medicine] - 2 Weeks Activity/Diet/Wound Care/Special Instructions: No heavy lifting over 15lbs for 5 weeks, he may shower tomorrow no baths for 3 weeks. Discharge Disposition: HOME SELF-CARE
[2019-03-08 10:00] VITALS: RESP 16
[2019-03-08] MEDS ORDERED: HYDROcodone/APAP 5-325MG 1 EACH TAB PO ONE (10:27)
[2019-03-08 10:45] VITALS: BP 123/62; PULSE 59
== END 2019-03-08 11:15 | disposition home or self-care (01) ==
LOC: OR 06:12
PROVIDERS: ATTEND Student in an Organized Health Care Education/Training Program
DX: K40.90 Unilateral inguinal hernia, without obstruction or gangrene, not specified as recurrent (principal); Z79.82 Long term (current) use of aspirin; Z85.3 Personal history of malignant neoplasm of breast; Z79.899 Other long term (current) drug therapy
CPT/HCPCS: 49650; C1781; J2250; J1644; J1100; J2710; J2405; J2001; J3010; J2370; J0330; J2704; J0690

== ENCOUNTER → 2019-05-09 | Outpatient (CLI) | payer MEDICARE, BC ==
--- NOTE | 2019-05-09 09:46 | MM ---
Reason for exam: additional evaluation requested from prior study. Last mammogram was performed 1 year ago. History: Patient has history of breast cancer at age 82. Mastectomy of the right breast, January 05, 2013. Malignant US RT VAD breast biopsy of the right breast, December 29, 2012. Taking antineoplastic for 6 years beginning at age 82. Physical Findings: Nurse did not find any significant physical abnormalities on exam. MG 3D Diag Mammo W/Cad LT CC and MLO view(s) were taken of the left breast. Prior study comparison: May 05, 2018, left breast MG 3d diag mammo w/cad LT. December 21, 2012, CAD bilateral diagnostic mammogram. There are scattered fibroglandular densities. There is no discrete abnormality. These results were verbally communicated with the patient and result sheet given to the patient on 05/09/19. ASSESSMENT: Negative, BI-RAD 1 RECOMMENDATION: Clinical management of the left breast. Manage patient on a clinical basis.
== END | disposition home or self-care (01) ==
LOC: RADMAMWWP 08:39
PROVIDERS: ATTEND Internal Medicine Hematology & Oncology
DX: Z08 Encounter for follow-up examination after completed treatment for malignant neoplasm (principal); Z85.3 Personal history of malignant neoplasm of breast
CPT/HCPCS: 77065; G0279; 77061

== ENCOUNTER → 2020-05-10 | Outpatient (CLI) | payer MEDICARE, BC ==
--- NOTE | 2020-05-10 10:13 | MM ---
Reason for exam: additional evaluation requested from prior study. Last mammogram was performed 1 year ago. History: Patient has history of breast cancer at age 82. Mastectomy of the right breast, January 05, 2013. Malignant US RT VAD breast biopsy of the right breast, December 29, 2012. Taking antineoplastic for 6 years beginning at age 82. Physical Findings: Nurse did not find any significant physical abnormalities on exam. MG 3D Diag Mammo W/Cad LT CC and MLO view(s) were taken of the left breast. Prior study comparison: May 09, 2019, left breast MG 3d diag mammo w/cad LT. May 05, 2018, left breast MG 3d diag mammo w/cad LT. The breast tissue is almost entirely fat. There is no discrete abnormality. No suspicious calcifications or masses are seen. No significant new findings when compared with previous films. These results were verbally communicated with the patient and result sheet given to the patient on 05/10/20. ASSESSMENT: Benign, BI-RAD 2 RECOMMENDATION: Follow-up diagnostic mammogram of the left breast in 1 year.
== END | disposition home or self-care (01) ==
LOC: RADMAMWWP 08:40
PROVIDERS: ATTEND Internal Medicine Hematology & Oncology
DX: Z08 Encounter for follow-up examination after completed treatment for malignant neoplasm (principal); Z85.3 Personal history of malignant neoplasm of breast; Z90.11 Acquired absence of right breast and nipple
CPT/HCPCS: 77065; G0279; 77061

== ENCOUNTER → 2020-12-25 | Outpatient (CLI) | payer MEDICARE, BC ==
--- NOTE | 2020-12-25 14:29 | CT ---
I EXAMINATION TYPE: CT brain wo con DATE OF EXAM: 12/25/2020 COMPARISON: 06/12/2015 HISTORY: memory loss, confusion CT DLP: [address] of the brain was performed. The ventricles, basal cisterns and sulci overlying the cerebral convexities demonstrate mild enlargem ent. There is no evidence for intracranial hemorrhage or sulcal effacement. There is decreased attenuation about the periventricular white matter and deep white matter of both c erebral hemispheres, compatible with chronic small vessel ischemia. Differential diagnosis does inclu de demyelination. No mass effects are seen.No midline shift. Osseous calvarium is intact. If symptoms persist consider MRI. IMPRESSION: 1. Age related atrophic and chronic small vessel ischemic change without acute intracranial process s een at this time.
== END | disposition home or self-care (01) ==
LOC: RADCTMAIN 13:54
PROVIDERS: ATTEND Family Medicine
DX: I67.82 Cerebral ischemia (principal)
CPT/HCPCS: 70450

== ENCOUNTER 2021-04-01 16:52 | Emergency (ER) | payer MEDICARE, BC ==
[2021-04-01 17:24] VITALS: TEMP 98.3
[2021-04-01] MEDS ORDERED: ONDANSETRON 4 MG/2 ML VIAL IVP STA (17:55)
[2021-04-01] MEDS ORDERED: SODIUM CHLORIDE 0.9% 500 ML 500 ML IV STA (17:55)
[2021-04-01] MEDS ORDERED: DICYCLOMINE 10 MG/ML 2 ML AMP IM STA (17:55)
[2021-04-01] MEDS ORDERED: PANTOPRAZOLE 40 MG/10 ML VIAL IVP STA (17:55)
--- NOTE | 2021-04-01 17:59 | ED ---
Abdominal Pain HPI - General Chief Complaint: Abdominal Pain Stated Complaint: abd pain Time Seen by Provider: 04/01/21 17:33 Source: patient Mode of arrival: ambulatory Limitations: no limitations - History of Present Illness Initial Comments: Patient complains of abdominal pain. The pain is epigastric. The pain is worse if he gets up and walks around. He denies any chest pain or pressure or tightness. He has no shortness of breath. He has no palpitations. He currently does not feel like he is going to vomit. He has had a little nausea. He has no blood in the stool. He has no black or tarry stool. He has no focal weakness or lightheadedness. His states that this is likely related to stress because they are moving to [place] tomorrow. - Related Data Home Medications Medication Instructions Recorded Confirmed Tamoxifen Citrate 20 mg PO DAILY 03/21/15 04/01/21 Aspirin [Adult Low Dose Aspirin EC] 81 mg PO DAILY 03/02/19 04/01/21 Multivitamins, Thera [Multivitamin 1 tab PO DAILY 03/02/19 04/01/21 (formulary)] Ergocalciferol [Vitamin D2 (1250 1,250 mcg PO Q28D 04/01/21 04/01/21 Mcg = 35237 Iu)] Previous Rx's Medication Instructions Recorded Docusate [Colace] 100 mg PO DAILY PRN 15 Days #30 04/01/21 capsule polyethylene glycoL 3350 [Miralax] 17 gm PO DAILY #50 packet 04/01/21 Allergies Allergy/AdvReac Type Severity Reaction Status Date / Time No Known Allergies Allergy Verified 04/01/21 19:27 Review of Systems ROS Statement: Those systems with pertinent positive or pertinent negative responses have been documented in the HPI. ROS Other: All systems not noted in ROS Statement are negative. Past Medical History Past Medical History: Cancer, Hyperlipidemia Additional Past Medical History / Comment(s): BREAST CA (2012), HX OF STOMACH ULCER YEARS AGO, CONSTIPATION, RIGHT INGUINAL HERNIA. History of Any Multi-Drug Resistant Organisms: None Reported Past Surgical History: Breast Surgery, Hernia Repair Additional Past Surgical History / Comment(s): RT BREAST MASTECTOMY,, 03-30-15 TO SRINIVASAN RT KNEE REPLACEMENT, LEFT INGUINAL HERNIA (22 YRS OLD) Past Anesthesia/Blood Transfusion Reactions: No Reported Reaction Past Psychological History: No Psychological Hx Reported Smoking Status: Never smoker Past Alcohol Use History: None Reported Past Drug Use History: None Reported - Past Family History Mother Family Medical History: No Reported History General Exam Limitations: no limitations General appearance: alert, in no apparent distress Head exam: Present: atraumatic, normocephalic, normal inspection Eye exam: Present: normal appearance, PERRL, EOMI. Absent: scleral icterus, conjunctival injection, periorbital swelling ENT exam: Present: normal exam, mucous membranes moist Neck exam: Present: normal inspection. Absent: tenderness, meningismus, lymphadenopathy Respiratory exam: Present: normal lung sounds bilaterally. Absent: respiratory distress, wheezes, rales, rhonchi, stridor Cardiovascular Exam: Present: regular rate, normal rhythm, normal heart sounds. Absent: systolic murmur, diastolic murmur, rubs, gallop, clicks GI/Abdominal exam: Present: soft, tenderness, normal bowel sounds. Absent: distended, guarding, rebound, rigid Extremities exam: Present: normal inspection, full ROM, normal capillary refill. Absent: tenderness, pedal edema, joint swelling, calf tenderness Back exam: Present: normal inspection Neurological exam: Present: alert, oriented X3, CN II-XII intact Psychiatric exam: Present: normal affect, normal mood Skin exam: Present: warm, dry, intact, normal color. Absent: rash Course Vital Signs 04/01/21 17:23 Temperature 98.3 F Pulse Rate 84 Respiratory 16 Rate Blood Pressure 124/83 O2 Sat by Pulse 95 Oximetry Medical Decision Making - Medical Decision Making Laboratory studies are within acceptable limits. CT is concerning for constipation but no evidence of any other emergency. Patient is stable for discharge. - Lab Data Result diagrams: 04/01/21 18:23 04/01/21 18:23 Lab Results 04/01/21 04/01/21 04/01/21 Range/Units 18:23 18:23 18:23 WBC 8.3 (3.8-10.6) k/uL RBC 4.35 (4.30-5.90) m/uL Hgb 14.3 (13.0-17.5) gm/dL Hct 42.6 (39.0-53.0) % MCV 97.9 (80.0-100.0) fL MCH 32.9 (25.0-35.0) pg MCHC 33.6 (31.0-37.0) g/dL RDW 13.5 (11.5-15.5) % Plt Count 201 (150-450) k/uL MPV 8.0 Neutrophils % 77 % Lymphocytes % 13 % Monocytes % 6 % Eosinophils % 2 % Basophils % 0 % Neutrophils # 6.4 (1.3-7.7) k/uL Lymphocytes # 1.1 (1.0-4.8) k/uL Monocytes # 0.5 (0-1.0) k/uL Eosinophils # 0.1 (0-0.7) k/uL Basophils # 0.0 (0-0.2) k/uL Sodium 137 (137-145) mmol/L Potassium 4.1 (3.5-5.1) mmol/L Chloride 107 (98-107) mmol/L Carbon Dioxide 24 (22-30) mmol/L Anion Gap 6 mmol/L BUN 24 H (9-20) mg/dL Creatinine 1.27 H (0.66-1.25) mg/dL Est GFR (CKD-EPI)AfAm 58 (>60 ml/min/1.73 sqM) Est GFR (CKD-EPI)NonAf 50 (>60 ml/min/1.73 sqM) Glucose 141 H (74-99) mg/dL Calcium 9.0 (8.4-10.2) mg/dL Total Bilirubin 0.7 (0.2-1.3) mg/dL AST 33 (17-59) U/L ALT 20 (4-49) U/L Alkaline Phosphatase 48 (38-126) U/L Troponin I (0.000-0.034) ng/mL Total Protein 6.1 L (6.3-8.2) g/dL Albumin 3.9 (3.5-5.0) g/dL Lipase 33 (23-300) U/L Urine Color Yellow Urine Appearance Clear (Clear) Urine pH 5.0 (5.0-8.0) Ur Specific [place] 1.025 (1.001-1.035) Urine Protein Trace H (Negative) Urine Glucose (UA) Negative (Negative) Urine Ketones Negative (Negative) Urine Blood Negative (Negative) Urine Nitrite Negative (Negative) Urine Bilirubin Negative (Negative) Urine Urobilinogen <2.0 (<2.0) mg/dL Ur Leukocyte Esterase Negative (Negative) 04/01/21 04/01/21 Range/Units 18:23 19:28 WBC (3.8-10.6) k/uL RBC (4.30-5.90) m/uL Hgb (13.0-17.5) gm/dL Hct (39.0-53.0) % MCV (80.0-100.0) fL MCH (25.0-35.0) pg MCHC (31.0-37.0) g/dL RDW (11.5-15.5) % Plt Count (150-450) k/uL MPV Neutrophils % % Lymphocytes % % Monocytes % % Eosinophils % % Basophils % % Neutrophils # (1.3-7.7) k/uL Lymphocytes # (1.0-4.8) k/uL Monocytes # (0-1.0) k/uL Eosinophils # (0-0.7) k/uL Basophils # (0-0.2) k/uL Sodium (137-145) mmol/L Potassium (3.5-5.1) mmol/L Chloride (98-107) mmol/L Carbon Dioxide (22-30) mmol/L Anion Gap mmol/L BUN (9-20) mg/dL Creatinine (0.66-1.25) mg/dL Est GFR (CKD-EPI)AfAm (>60 ml/min/1.73 sqM) Est GFR (CKD-EPI)NonAf (>60 ml/min/1.73 sqM) Glucose (74-99) mg/dL Calcium (8.4-10.2) mg/dL Total Bilirubin (0.2-1.3) mg/dL AST (17-59) U/L ALT (4-49) U/L Alkaline Phosphatase (38-126) U/L Troponin I 0.014 <0.012 (0.000-0.034) ng/mL Total Protein (6.3-8.2) g/dL Albumin (3.5-5.0) g/dL Lipase (23-300) U/L Urine Color Urine Appearance (Clear) Urine pH (5.0-8.0) Ur Specific [place] (1.001-1.035) Urine Protein (Negative) Urine Glucose (UA) (Negative) Urine Ketones (Negative) Urine Blood (Negative) Urine Nitrite (Negative) Urine Bilirubin (Negative) Urine Urobilinogen (<2.0) mg/dL Ur Leukocyte Esterase (Negative) 04/01/21 19:15 Twelve-lead EKG shows ventricular rate 66 bpm, slightly long [place] interval, normal QRS complexes, no ST elevation or depression, interpreted by me as sinus rhythm with first-degree AV block. Disposition Clinical Impression: Constipation Disposition: HOME SELF-CARE Condition: Good Prescriptions: Docusate [Colace] 100 mg PO DAILY PRN 15 Days #30 capsule PRN Reason: Constipation polyethylene glycoL 3350 [Miralax] 17 gm PO DAILY #50 packet Is patient prescribed a controlled substance at d/c from ED?: No Referrals: Bennett Blank MD [Primary Care Provider] - 1-2 days
[2021-04-01] MEDS: MORPHINE SULFATE 2 MG/ML SYRINGE IVP STA ×2 (18:27→19:18)
[2021-04-01 18:31] LABS: Basophils % (A) 0 %; Eosinophils # (A) 0.1 k/uL (0-0.7); Eosinophils % (A) 2 %; HCT 42.6 % (39.0-53.0); HGB 14.3 gm/dL (13.0-17.5); Lymphocytes # (A) 1.1 k/uL (1.0-4.8); Lymphocytes % (A) 13 %; MCH 32.9 pg (25.0-35.0); MCHC 33.6 g/dL (31.0-37.0); MCV 97.9 fL (80.0-100.0); Monocytes # (A) 0.5 k/uL (0-1.0); Monocytes % (A) 6 %; Neutrophils # (A) 6.4 k/uL (1.3-7.7); Neutrophils % (A) 77 %; Platelet Count 201 k/uL (150-450); RBC 4.35 m/uL (4.30-5.90); RDW 13.5 % (11.5-15.5); WBC 8.3 k/uL (3.8-10.6)
[2021-04-01 18:32] LABS: Appearance,Urine Clear (Clear); Bilirubin,Urine Negative (Negative); Blood,Urine Negative (Negative); Color,Urine Yellow; Glucose,Urine (UA) Negative (Negative); Ketones,Urine Negative (Negative); Leukocyte Esterase,Urine Negative (Negative); Nitrite,Urine Negative (Negative); Protein,Urine Trace (Negative); Specific Gravity,Urine 1.025 (1.001-1.035); Urobilinogen,Urine <2.0 mg/dL (<2.0)
[2021-04-01 18:41] LABS: Albumin 3.9 g/dL (3.5-5.0); Potassium 4.1 mmol/L (3.5-5.1); Total Bilirubin 0.7 mg/dL (0.2-1.3); Total Protein 6.1 g/dL (6.3-8.2)
--- NOTE | 2021-04-01 20:23 | CT ---
EXAMINATION TYPE: CT abdomen pelvis w con DATE OF EXAM: 04/01/2021 COMPARISON: 04/19/2014 HISTORY: Abdominal pain CT DLP: 906.5 mGycm Automated exposure control for dose reduction was used. CONTRAST: Performed with IV Contrast, patient injected with 80 mL of Isovue 300. The lung bases show subsegmental atelectasis right lower lobe. There is no pleural effusion. There is hiatal hernia. Heart size is normal. There is no pericardial effusion. Liver and spleen are intact. The bile ducts are not dilated. Gallbladder appears normal. Stomach is n ormal size. There is no evidence of pancreatic mass. There is no adrenal mass. There is 1 cm calculus upper pole right kidney. There are other smaller karo ateral renal calculi. Calculi are mostly in the right kidney. There is no retroperitoneal adenopathy. Ureters are not dilated. Delayed images show normal renal excretion. The bladder distends smoothly. There is no inguinal hernia. There is no free fluid in the pelvis. There is enlarged prostate with ca lcification. Prostate measures almost 6 cm. There is no pelvic mass. There is no evidence of a bowel obstruction. There is no ascites or free air. The lumbar vertebra have normal alignment. Disc spaces are fairly normal. Posterior elements are inta ct. There is no compression fracture. The bony pelvis is intact. Hip joints are intact. There is no h ip dysplasia. There is some retained fecal material in the rectum. Rectum measures 8 cm. IMPRESSION: Nonobstructing multiple renal calculi. There is some constipation with rectal fecal impaction. Enlarged prostate. Hiatal hernia. Minimal ate lectasis right lung base.
[2021-04-01 20:44] VITALS: BP 136/81; PULSE 70; RESP 18
== END 2021-04-01 20:49 | disposition home or self-care (01) ==
LOC: EC 16:52
DX: K59.00 Constipation, unspecified (principal); E78.5 Hyperlipidemia, unspecified; Z79.82 Long term (current) use of aspirin; Z79.899 Other long term (current) drug therapy; Z85.3 Personal history of malignant neoplasm of breast; Z87.11 Personal history of peptic ulcer disease
CPT/HCPCS: 93005; 80053; 83690; 84484; 85025; 74177; 96374; 96375; 96361 ×2; 96372; 99284; J0500; J2405; C9113; Q9967